=== PATIENT | female | born 1980 | race Caucasian/White ===

== ENCOUNTER 2017-12-03 08:30 | Emergency (ER) | payer OTHER, MEDICAID ==
[~2017-12-03] VITALS: Ht 172.7 cm; Wt 71.2 kg
[~2017-12-03 08:30] MED LIST: ACYCLOVIR 400400 MG PO; BACITRACIN28.4 GM TP; BENTYL20 MG PO; DOXYCYCLINE 10100 MG PO; IBUPROFEN 800800 M1 PO; KLONOPIN; LEVOTHYROXINE0.05 MG PO; LEVOTHYROXINE0.2 M1; LOPERAMIDE 2 MG2 M1 PO; MEDROLDOSEPACK PO; MYLANTA TABLET1 TA1 PO; NAPROSYN500 MG PO; NORCO 5-325 TA1 EACH PO; ROBAFEN-DM SYR118 ML PO; SYNTHROID25 MCG; TRAMADOL 50 MG50 MG PO; XANAX 0.5 MG0.5 M1; XANAX 1 MG TABLE1 MG PO; XANAX1 MG PO; ZPAK PO
[2017-12-03] MEDS ORDERED: KLONOPIN1 MG PO (10:55)
[2017-12-03] MEDS ORDERED: SYNTHROID50 MCG PO (10:57)
[2017-12-03 11:01] VITALS: BP 130/83
== END 2017-12-03 11:01 | disposition home or self-care (01) ==
LOC: M.ERS 08:30
DX: F41.9 Anxiety disorder, unspecified (principal); Z88.5 Allergy status to narcotic agent

== ENCOUNTER 2018-03-14 04:30 | Emergency (ER) | payer OTHER, MEDICAID ==
[~2018-03-14] VITALS: Ht 172.7 cm; Wt 77.1 kg
[~2018-03-14 04:30] MED LIST changes: +KLONOPIN1 MG PO; +SYNTHROID50 MCG PO
[2018-03-14 04:47] LABS: URINE BILIRUBIN NEGATIVE (Negative); URINE BLOOD NEGATIVE (Negative); URINE CLARITY CLEAR; URINE COLOR YELLOW; URINE GLUCOSE-RANDOM NEGATIVE (Negative); URINE KETONES 1+ (Negative); URINE LEUKOCYTES-REFLEX 1+ (Negative); URINE NITRITE-REFLEX POSITIVE (Negative); URINE PROTEIN NEGATIVE (Negative); URINE UROBILINOGEN 0.2 E.U./dl (0.2-1.0)
[2018-03-14 04:54] LABS: ABSOLUTE NEUTROPHILS 5.1 thou/uL (1.6-8.1); BASOPHILS 0.5 %; EOSINOPHILS 0.7 %; HEMATOCRIT 33.5 % (37.0-47.0); HEMOGLOBIN 10.9 gm/dL (12.0-15.0); LYMPHOCYTES 14.2 %; MCH 27.9 pg (26.0-34.0); MCHC 32.6 g/dL (28.0-37.0); MCV 85.5 fL (80.0-100.0); MONOCYTES 13.6 %; MPV 7.9 fl. (7.2-11.1); NUCLEATED RBCS 0 /100WBC; PLATELET COUNT* 216 thou/uL (150-400); RBC 3.92 mil/uL (4.20-5.00); RDW-CV 15.6 % (10.5-14.5); WBC 7.1 thou/uL (4.0-11.0)
[2018-03-14 05:01] LABS: CALCIUM 8.9 mg/dL (8.5-10.1); CREATININE 0.7 mg/dL (0.6-1.3)
[2018-03-14 05:05] LABS: BACTERIA-REFLEX >30 Many /HPF (None Seen); SQUAMOUS 0-3 Few /LPF (0-3); URINE RBC 3-10 Few /HPF (0-2); WBC CLUMPS Few (None Seen)
[2018-03-14 05:06] LABS: CASTS None Seen /LPF (None Seen); CRYSTALS None Seen /LPF (None Seen); MUCUS 0-3 Light strn/LPF (None Seen)
[2018-03-14 05:11] LABS: ALBUMIN 3.5 g/dL (3.4-5.0); TOTAL BILIRUBIN 0.4 mg/dL (<0.1-1.0); TOTAL PROTEIN 7.9 g/dL (6.4-8.2)
[2018-03-14] MEDS ORDERED: PHENAZOPYRIDIN200 M2 PO (05:19)
[2018-03-14] MEDS ORDERED: ZOFRAN ODT4 M1 PO (05:19)
[2018-03-14] MEDS ORDERED: BACTRIM DS TAB1 EACH PO (05:19)
[2018-03-14 05:39] VITALS: BP 115/77
== END 2018-03-14 05:40 | disposition home or self-care (01) ==
LOC: M.ERS 04:30
PROVIDERS: Emergency Medicine Emergency Medical Services
DX: N39.0 Urinary tract infection, site not specified (principal); F41.9 Anxiety disorder, unspecified; Z88.6 Allergy status to analgesic agent

== ENCOUNTER 2018-08-21 15:44 | Emergency (ER) | payer OTHER, MEDICAID ==
[~2018-08-21] VITALS: Ht 172.7 cm; Wt 78.0 kg
[~2018-08-21 15:44] MED LIST changes: +BACTRIM DS TAB1 EACH PO; +PHENAZOPYRIDIN200 M2 PO; +ZOFRAN ODT4 M1 PO
[2018-08-21] MEDS ORDERED: LEXAPRO 10 MG T10 M1 PO ×2 (15:59→16:20)
[2018-08-21] MEDS ORDERED: CLONAZEPAM 1 MG1 M1 PO (16:20)
[2018-08-21 16:43] VITALS: BP 130/77
== END 2018-08-21 16:44 | disposition home or self-care (01) ==
LOC: M.ERS 15:44
DX: F41.9 Anxiety disorder, unspecified (principal); Z76.0 Encounter for issue of repeat prescription; Z88.1 Allergy status to other antibiotic agents; Z88.5 Allergy status to narcotic agent

== ENCOUNTER 2019-03-10 10:19 | Emergency (ER) | payer OTHER, MEDICAID ==
[~2019-03-10] VITALS: Ht 172.7 cm; Wt 75.8 kg
[~2019-03-10 10:19] MED LIST changes: +CLONAZEPAM 1 MG1 M1 PO; +LEXAPRO 10 MG T10 M1 PO
[2019-03-10 10:44] LABS: URINE BILIRUBIN NEGATIVE (Negative); URINE BLOOD NEGATIVE (Negative); URINE CLARITY CLEAR; URINE COLOR YELLOW; URINE GLUCOSE-RANDOM NEGATIVE (Negative); URINE KETONES NEGATIVE (Negative); URINE LEUKOCYTES-REFLEX 3+ (Negative); URINE NITRITE-REFLEX NEGATIVE (Negative); URINE PROTEIN NEGATIVE (Negative); URINE SPECIFIC GRAVITY <= 1.005 (1.005-1.030); URINE UROBILINOGEN 0.2 E.U./dl (0.2-1.0)
[2019-03-10 10:46] LABS: ABSOLUTE EOSINOPHILS 0.1 thou/uL (0.0-0.7); ABSOLUTE LYMPHOCYTES 1.8 thou/uL (0.8-5.3); ABSOLUTE MONOCYTES 0.4 thou/uL (0.0-1.2); ABSOLUTE NEUTROPHILS 2.5 thou/uL (1.6-8.1); BASOPHILS 0.8 %; HEMATOCRIT 31.6 % (37.0-47.0); HEMOGLOBIN 10.1 gm/dL (12.0-15.0); LYMPHOCYTES 36.7 %; MCH 24.4 pg (26.0-34.0); MCHC 31.9 g/dL (28.0-37.0); MCV 76.3 fL (80.0-100.0); MONOCYTES 8.8 %; MPV 8.2 fl. (7.2-11.1); NUCLEATED RBCS 0 /100WBC; PLATELET COUNT* 273 thou/uL (150-400); POLYS 50.7 %; RBC 4.14 mil/uL (4.20-5.00); RDW-CV 18.1 % (10.5-14.5); WBC 4.9 thou/uL (4.0-11.0)
[2019-03-10 10:55] LABS: BACTERIA-REFLEX 1-9 Few /HPF (None Seen); CASTS None Seen /LPF (None Seen); CRYSTALS None Seen /LPF (None Seen); MUCUS 0-3 Light strn/LPF (None Seen); SQUAMOUS 4-10 Moderate /LPF (0-3); URINE RBC 0-2 Rare /HPF (0-2)
[2019-03-10 10:56] LABS: CALCIUM 9.1 mg/dL (8.5-10.1); CREATININE 0.8 mg/dL (0.6-1.3); POTASSIUM 3.7 mmol/L (3.5-5.1)
[2019-03-10 11:00] LABS: ALBUMIN 3.6 g/dL (3.4-5.0); TOTAL BILIRUBIN 0.4 mg/dL (<0.1-1.0)
[2019-03-10] MEDS ORDERED: ONDANSETRON HCL4 M2 PO (13:45)
[2019-03-10] MEDS ORDERED: NABUMETONE 750750 M1 PO (13:45)
[2019-03-10] MEDS ORDERED: CEFDINIR300 MG PO (13:45)
[2019-03-10] MEDS ORDERED: MIRALAX17 GM PO (13:52)
[2019-03-10 14:02] VITALS: BP 99/72
--- NOTE | 2019-03-10 16:25 | EKG ---
[place] [address] ELECTROCARDIOGRAM REPORT Name: LORI CRYSTAL Room: [facility]#: [id number] Admission: 03/10/19 Attend Phys: Discharge: 03/10/19 Date of : 84 Report #: [id number] THIS REPORT FOR: //name// [facility] ED Test Date: 2019-03-10 Test Time: 12:03:27 Pat Name: LORI CRYSTAL Department: Room: Gender: F Ski Lift Attendant: : 1980 Requested By: Carmen Plummer Order Number: [id number] MD: Sky Howard Measurements Intervals [place] Rate: 49 P: 48 [place]: 170 QRS: 59 QRSD: 89 T: 46 QT: 436 QTc: 394 Interpretive Statements Sinus bradycardia Compared to ECG 01/22/2013 08:46:32 Sinus rhythm no longer present Sinus arrhythmia no longer present Electronically Signed On 03-10-2019 16:25:12 CDT by Sky Howard [email or web address] <ELECTRONICALLY SIGNED> By: Sky Howard MD, [facility] 03/10/19 1625 1203 1203 Sky Howard MD, FACC /EPI
== END 2019-03-10 14:02 | disposition home or self-care (01) ==
LOC: M.ERS 10:19
PROVIDERS: Nurse Practitioner Family
DX: A59.9 Trichomoniasis, unspecified (principal); N39.0 Urinary tract infection, site not specified; K59.00 Constipation, unspecified; Q83.9 Congenital malformation of breast, unspecified; F41.9 Anxiety disorder, unspecified; Z88.1 Allergy status to other antibiotic agents; Z88.5 Allergy status to narcotic agent

== ENCOUNTER 2019-04-20 18:52 | Emergency (ER) | payer OTHER, MEDICAID ==
[~2019-04-20] VITALS: Ht 170.2 cm; Wt 72.6 kg
[~2019-04-20 18:52] MED LIST changes: +CEFDINIR300 MG PO; +MIRALAX17 GM PO; +NABUMETONE 750750 M1 PO; +ONDANSETRON HCL4 M2 PO
[2019-04-20] MEDS ORDERED: PROMETHAZINE-P118 M1 PO (19:53)
[2019-04-20] MEDS ORDERED: FLONASE 0.05%50 MCG NASAL (19:54)
[2019-04-20] MEDS ORDERED: MOTION RELIEF25 MG PO (20:00)
[2019-04-20 20:06] VITALS: BP 105/69
== END 2019-04-20 20:06 | disposition home or self-care (01) ==
LOC: M.ERS 18:52
DX: J06.9 Acute upper respiratory infection, unspecified (principal); F41.9 Anxiety disorder, unspecified; Z98.51 Tubal ligation status; Z88.1 Allergy status to other antibiotic agents; Z88.5 Allergy status to narcotic agent

== ENCOUNTER 2019-07-29 19:57 | Emergency (ER) | payer OTHER, MEDICAID ==
[~2019-07-29] VITALS: Ht 172.7 cm; Wt 74.4 kg
[~2019-07-29 19:57] MED LIST changes: +FLONASE 0.05%50 MCG NASAL; +MOTION RELIEF25 MG PO; +PROMETHAZINE-P118 M1 PO
[2019-07-29 20:42] LABS: INFLUENZA A ANTIGEN Negative (Negative); INFLUENZA B ANTIGEN Negative (Negative)
[2019-07-29] MEDS ORDERED: ZPAK PO (21:14)
[2019-07-29] MEDS ORDERED: PREDNISONE 10 M10 MG PO (21:14)
[2019-07-29] MEDS ORDERED: PROMETHAZINE-P118 M1 PO (21:22)
[2019-07-29 21:43] VITALS: BP 120/66
== END 2019-07-29 21:43 | disposition home or self-care (01) ==
LOC: M.ERS 19:57
PROVIDERS: Nurse Practitioner Family
DX: J06.9 Acute upper respiratory infection, unspecified (principal); F41.9 Anxiety disorder, unspecified; Z88.1 Allergy status to other antibiotic agents; Z88.5 Allergy status to narcotic agent; Z98.51 Tubal ligation status

== ENCOUNTER 2019-09-11 09:35 | Emergency (ER) | payer OTHER, MEDICAID ==
[~2019-09-11] VITALS: Ht 172.7 cm; Wt 68.0 kg
[~2019-09-11 09:35] MED LIST changes: +PREDNISONE 10 M10 MG PO
[2019-09-11] MEDS ORDERED: KLONOPIN1 MG PO ×2 (09:53→10:34)
[2019-09-11] MEDS ORDERED: ONDANSETRON HCL4 M2 PO (10:36)
[2019-09-11 11:16] VITALS: BP 124/83
== END 2019-09-11 11:17 | disposition home or self-care (01) ==
LOC: M.ERS 09:35
DX: F41.9 Anxiety disorder, unspecified (principal); Z76.0 Encounter for issue of repeat prescription; Z88.5 Allergy status to narcotic agent; Z88.1 Allergy status to other antibiotic agents; Z98.51 Tubal ligation status